=== PATIENT | male | born 1980 | race Caucasian/White ===

== ENCOUNTER 2016-07-29 18:14 | Emergency (ER) | payer SELFPAY | END 2016-07-29 22:25 | disposition home or self-care (01) | LOC: D.ER 18:14 | DX: L02.414 Cutaneous abscess of left upper limb (principal); F17.200 Nicotine dependence, unspecified, uncomplicated ==

== ENCOUNTER 2017-12-29 21:53 | Emergency (ER) | payer SELFPAY ==
[~2017-12-29] VITALS: Ht 175.3 cm; Wt 68.2 kg
[2017-12-29 21:56] VITALS: Ht 175.3 cm; Wt 68.2 kg
[2017-12-29] MEDS ORDERED: HYDROCODONE-APA1 TAB PO (21:59)
[2017-12-29] MEDS ORDERED: SOMA250 MG (21:59)
[2017-12-29 22:38] LABS: BASOPHILS 0.5 % (0-2); EOSINOPHILS 3.7 % (0-7); HEMATOCRIT 37.9 % (42.0-54.0); HEMOGLOBIN 12.8 g/dL (13.5-17.5); IMMATURE GRANULOCYTES 0.2 % (0-5); LYMPHOCYTES 42.7 % (15-50); MCHC 33.8 g/dL (31.0-37.0); MEAN PLATELET VOLUME 9.3 fL (7.4-10.4); NEUTROPHILS 44.9 % (40-80); PLATELET COUNT 293 10x3/uL (130-400); RBC 4.26 10x6/uL (4.20-6.10); RDW 13.1 % (11.5-14.5); WBC 6.2 10x3/uL (4.8-10.8)
[2017-12-29 22:52] LABS: ALBUMIN 3.4 g/dL (3.4-5.0); ALKALINE PHOSPHATASE 90 U/L (46-116); ALT (SGPT) 26 U/L (10-68); CALC OSMOLALITY 282 mosm/kg (275-300); CALCIUM 8.2 mg/dL (8.5-10.1); CARBON DIOXIDE 27.3 mmol/L (21.0-32.0); CHLORIDE - SERUM 108 mmol/L (98-107); CREATININE - SERUM 0.9 mg/dL (0.6-1.3); GLUCOSE 86 mg/dL (74-106); POTASSIUM - SERUM 3.6 mmol/L (3.5-5.1); PROTEIN - SERUM 6.6 g/dL (6.4-8.2); SODIUM 142 mmol/L (136-145); UREA NITROGEN 14 mg/dL (7-18); eGFR NON AFRICAN AMERICAN > 90 mL/min (90-120)
[2017-12-30 00:59] LABS: APPEARANCE CLEAR (CLEAR); BILIRUBIN 1+ (NEGATIVE); COLOR DK YELLOW (YELLOW); GLUCOSE NEGATIVE (NEGATIVE); KETONE NEGATIVE (NEGATIVE); NITRITE NEGATIVE (NEGATIVE); PROTEIN NEGATIVE (NEGATIVE); SPECIFIC GRAVITY 1.025 (1.005-1.020); UROBILINOGEN NORMAL (NORMAL)
[2017-12-30 01:10] LABS: UDS - AMPHET POSITIVE QUAL (NEGATIVE); UDS - BARB NEGATIVE QUAL (NEGATIVE); UDS - BENZO NEGATIVE QUAL (NEGATIVE); UDS - COCAINE NEGATIVE QUAL (NEGATIVE); UDS - OPIATE NEGATIVE QUAL (NEGATIVE); UDS - PCP NEGATIVE QUAL (NEGATIVE); UDS - THC POSITIVE QUAL (NEGATIVE)
[2017-12-30 06:26] VITALS: BP 114/70
== END 2017-12-30 06:28 | disposition home or self-care (01) ==
LOC: D.ER 21:53
PROVIDERS: Family Medicine
DX: F32.9 Major depressive disorder, single episode, unspecified (principal); M79.672 Pain in left foot; M79.671 Pain in right foot; R10.9 Unspecified abdominal pain; F17.200 Nicotine dependence, unspecified, uncomplicated

== ENCOUNTER 2019-05-25 23:26 | Emergency (ER) | payer MEDICAID ==
[~2019-05-25] VITALS: Ht 175.3 cm; Wt 63.6 kg
[~2019-05-25 23:26] MED LIST: HYDROCODONE-APA1 TAB PO; SOMA250 MG
[2019-05-25 23:42] VITALS: Ht 175.3 cm; Wt 63.6 kg
[2019-05-26] MEDS ORDERED: CLEOCIN HCL300 MG PO (02:46)
[2019-05-26] MEDS ORDERED: KEFLEX500 MG PO (02:46)
[2019-05-26 03:39] VITALS: BP 122/78
== END 2019-05-26 03:40 | disposition home or self-care (01) ==
LOC: D.ER 23:26
DX: L02.415 Cutaneous abscess of right lower limb (principal)